=== PATIENT | male | born 1995 | race Caucasian/White ===

== ENCOUNTER 2018-08-14 17:41 | Inpatient (IN) | payer OTHER ==
[2018-08-14 21:43] VITALS: BMI 28.2
--- NOTE | 2018-08-14 23:09 | HP ---
COWS - Scale Resting Pulse: 0= CA 80 or Below Sweatin=Flushed/Facial Moisture Restless Observation: 1= Difficult to Sit Still Pupil Size: 1= Pupils >than Normal Bone or Joint Aches: 2= Severe Diffuse Aches Runny Nose/ Eye Tearin= Runny Nose/Eyes GI Upset > 30mins: 2= Nausea/Diarrhea Tremor Observation: 2= Slight Tremor Visible Yawning Observation: 1= 1-2x During Session Anxiety or Irritability: 1=Feels Anxious/Irritable Goose Flesh Skin: 0=Smooth Skin COWS Score: 14 CIWA Score Nausea/Vomitin Muscle Tremors: 3 Anxiety: 2 Agitation: 3 Paroxysmal Sweats: 2 Orientation: 0-Oriented Tacttile Disturbances: 2-Mild Itch/Numbness/Burn Auditory Disturbances: 2-Mild Harshness/Frighten Visual Disturbances: 1-Very Mild Sensitivity Headache: 1-Very Mild CIWA-Ar Total Score: 18 - Admission Criteria [facility]AS[facility] Guidelines: Admission for Medically Managed Detox: Requires at least one of the followin. CIWA greater than 12 2. Seizures within the past 24 hours 3. Delirium tremens within the past 24 hours 4. Hallucinations within the past 24 hours 5. Acute intervention needed for co occurring medical disorder 6. Acute intervention needed for co occurring psychiatric disorder 7. Severe withdrawal that cannot be handled at a lower level of care (continued vomiting, continued diarrhea, abnormal vital signs) requiring intravenous medication and/or fluids 8. Admission ROS [facility] - HPI Chief Complaint: DEPENDENT ON HEROIN, ETOH, COCAINE, MARIJUANA AND XANAX ON 20 MGS. MMTP - LAST DOSE THIS AM Allergies/Adverse Reactions: Allergies Allergy/AdvReac Type Severity Reaction Status Date / Time No Known Allergies Allergy Verified 08/14/18 21:27 History of Present Illness: THE PT. IS REQUESTING ADMISSION TO THE DETOX UNIT AND CAME FOR MEDICAL CLEARANCE AND H AND PE Exam Limitations: No Limitations - Ebola screening Have you traveled outside of the country in the last 21 days: No (N) Have you had contact with anyone from an Ebola affected area: No Have you been sick,other than usual withdrawal symptoms: No Do you have a fever: No - Review of Systems Constitutional: See HPI, Malaise, Weakness EENT: reports: See HPI Respiratory: reports: See HPI Cardiac: reports: See HPI GI: reports: See HPI, Diarrhea, Nausea, Vomiting, Abdominal cramping : reports: See HPI Musculoskeletal: reports: See HPI, Muscle Pain, Muscle Weakness Integumentary: reports: See HPI Neuro: reports: See HPI, Headache, Weakness Endocrine: reports: See HPI Hematology: reports: See HPI Psychiatric: reports: Judgement Intact, Orientated x3, Anxious, Depressed Patient History - Patient Medical History Hx Asthma: No Hx Chronic Obstructive Pulmonary Disease (COPD): No Hx Cardiac Disorders: No Hx Hypertension: No Hx Seizures: No Hx Diabetes: No Hx Gastrointestinal Disorders: No Hx Genitourinary Disorders: No Hx Sexually Transmitted Disorders: No Hx Renal Disease (ESRD): No Hx Human Immunodeficiency Virus (HIV): No Hx Hepatitis C: No Hx Depression: Yes (ANXIETY) Hx Suicide Attempt: No Hx Schizophrenia: No - Patient Surgical History Past Surgical History: No Hx Neurologic Surgery: No Hx Cataract Extraction: No Hx Cardiac Surgery: No Hx Lung Surgery: No Hx Breast Surgery: No Hx Breast Biopsy: No Hx Abdominal Surgery: No Hx Appendectomy: No Hx Cholecystectomy: No Hx Genitourinary Surgery: No Hx Section: No Hx Orthopedic Surgery: No Anesthesia Reaction: No - PPD History Previous Implant?: No Documented Results: Negative w/o proof - Smoking Cessation Smoking history: Current some day smoker Have you smoked in the past 12 months: Yes Aproximately how many cigarettes per day: 4 Hx Chewing Tobacco Use: No Initiated information on smoking cessation: Yes 'Breaking Loose' booklet given: 08/14/18 - Substance & Tx. History Hx Alcohol Use: Yes Hx Substance Use: Yes Substance Use Type: Alcohol, Cocaine, Heroin, Marijuana, Prescribed, Tranquilizers Hx Substance Use Treatment: Yes - Substances abused Heroin Substance route: Injection Frequency: Daily Amount used: 20 to 30 bags Age of first use: 18 Date of last use: 08/14/18 Alprazolam (Xanax) Substance route: Oral Frequency: Daily Amount used: 4 to 5 0f 2 mg Age of first use: 18 Date of last use: 08/14/18 Alcohol Substance route: Oral Frequency: 3-6 times per week Amount used: liquor 1 pint Age of first use: 14 Date of last use: 08/13/18 Marijuana/Hashish Substance route: Smoking Frequency: Daily Amount used: 1 gram Age of first use: 13 Date of last use: 08/14/18 Cocaine Substance route: Injection Frequency: 3-6 times per week Amount used: 1 to 2 grams Age of first use: 18 Date of last use: 08/13/18 Family Disease History - Family Disease History Family History: Denies Admission Physical Exam [facility] - Vital Signs Vital Signs: Vital Signs - 24 hr 08/14/18 21:24 Temperature 97.6 F Pulse Rate 73 Respiratory 20 Rate Blood Pressure 113/70 - Physical General Appearance: Yes: No Apparent Distress, Nourished, Tremorous, Sweating, Anxious HEENTM: Yes: Hearing grossly Normal, Normocephalic, Normal Voice, MIRELLA, Pharynx Normal Respiratory: Yes: Chest Non-Tender, Lungs Clear, Normal Breath Sounds, No Respiratory Distress, No Accessory Muscle Use Neck: Yes: No masses,lesions,Nodules, Supple, Trachea in good position Breast: Yes: Breast Exam Deferred, Axillae without masses Cardiology: Yes: Regular Rhythm, Regular Rate, S1, S2 Abdominal: Yes: Normal Bowel Sounds, Non Tender, Soft Back: Yes: Normal Inspection Musculoskeletal: Yes: full range of Motion, Gait Steady, Pelvis Stable, Muscle Pain, Muscle weakness Extremities: Yes: Normal Capillary Refill, Tremors Neurological: Yes: skiver blockers II-XII NML intact, Fully Oriented, Alert, Motor Strength 5/5, Normal Response, Depressed Affect Integumentary: Yes: Normal Color, Warm, Moist, Track Ahn Lymphatic: Yes: Within Normal Limits - Addiitonal Findings: SWELLING AND TENDERNESS AT IVDA SITES+ - Diagnostic (1) Heroin dependence Current Visit: Yes Status: Chronic (2) EtOH dependence Current Visit: Yes Status: Chronic Qualifiers: Substance use status: uncomplicated Qualified Code(s): F10.20 - Alcohol dependence, uncomplicated (3) Cocaine dependence Current Visit: Yes Status: Chronic (4) Cannabis dependence Current Visit: Yes Status: Chronic (5) Anxiety and depression Current Visit: Yes Status: Chronic (6) Benzodiazepine dependence Current Visit: Yes Status: Chronic (7) Nicotine dependence Current Visit: Yes Status: Chronic Qualifiers: Nicotine product type: cigarettes Substance use status: uncomplicated Qualified Code(s): F17.210 - Nicotine dependence, cigarettes, uncomplicated (8) Methadone maintenance therapy patient Current Visit: Yes Status: Chronic Cleared for Admission [facility] - Detox or Rehab [facility] Level of Care: Medically Supervised Detox Regimen/Protocol: Valium Breathalyzer - Breathalyzer Breathalyzer: 0 Urine Drug Screen - Test Device Lot number: [id number] Expiration date: 08/06/19 - Control Is test valid?: Yes - Results Drug screen NEGATIVE: No Urine drug screen results: THC-Marijuana, PEPE-Cocaine, MOP-Opiates, MTD- Methadone, BZO-Benzodiazepines Inpatient Rehab Admission - Rehab Decision to Admit Inpatient rehab admission?: No
[2018-08-14] MEDS ORDERED: METHOCARBAMOL 500 MG TABLET PO PRN (23:18)
[2018-08-14] MEDS ORDERED: MAGNESIUM HYDROX 2400MG/30ML ORAL SUSPENSION 30 ML CUP PO PRN (23:18)
[2018-08-14] MEDS ORDERED: diazePAM 5 MG TABLET PO ONE (23:18)
[2018-08-14] MEDS ORDERED: ACETAMINOPHEN 325 MG TABLET (FP) PO PRN ×2 (23:18)
[2018-08-14] MEDS ORDERED: MAGNESIUM CITRATE 300 ML BOTTLE PO PRN (23:18)
[2018-08-14] MEDS ORDERED: BISMUTH SUBSALICYLATE 524 MG/30 ML UD PO PRN (23:18)
[2018-08-14] MEDS ORDERED: MENTHOL/PHENOL 1 EACH UD MM PRN (23:18)
[2018-08-14] MEDS ORDERED: IBUPROFEN 400 MG TABLET (FP) PO PRN (23:18)
[2018-08-14] MEDS ORDERED: hydrOXYzine PAMOATE 25 MG CAPSULE (FP) PO PRN (23:18)
[2018-08-14] MEDS ORDERED: MAG HYDROX/AL HYDROX/SIMETH 30 ML UNIT-DOSE CUP PO PRN (23:18)
[2018-08-15] MEDS: diazePAM 5 MG TABLET PO PRN ×2 (01:01→17:41)
[2018-08-15] MEDS: diazePAM 5 MG TABLET PO SCH ×4 (01:31→22:12)
--- NOTE | 2018-08-15 09:24 | PN ---
S CIWA - CIWA Score Nausea/Vomitin-Mild Nausea/No Vomiting Muscle Tremors: 4-Moderate,w/Arms Extend Anxiety: 2 Agitation: 3 Paroxysmal Sweats: 1-Minimal Palms Moist Orientation: 1-Uncertain about Date Tacttile Disturbances: 0-None Auditory Disturbances: 0-None Visual Disturbances: 0-None Headache: 1-Very Mild CIWA-Ar Total Score: 13 [facility] Progress Note (SOAP) Subjective: patient requesting detox from his daily routine methadone of 30mg last dose 12/25 estimated discharge date 08/17/18 of alcohol and benzo patient preferring return to methadone program continue methadone luis regimen safely Objective: 08/15/18 09:55 Vital Signs Temperature 96.9 F L 08/15/18 09:09 Pulse Rate 78 08/15/18 09:09 Respiratory Rate 18 08/15/18 09:09 Blood Pressure 113/68 08/15/18 09:09 O2 Sat by Pulse Oximetry (%) 08/15/18 09:55 lab pending Assessment: 08/15/18 09:56 alcohol and benzo withdrawal sx Plan: continue detox continue methadone 30 mg
[2018-08-15] MEDS: NICOTINE 14 MG/24 HOURS TOPICAL PATCH TD SCH (10:18)
[2018-08-15] MEDS: PRENATAL VITAMINS W/ FOLIC ACID TABLET (FP) PO SCH (10:18)
[2018-08-15] MEDS: METHADONE HCL 10 MG TABLET PO SCH (10:18)
[2018-08-15 10:39] LABS: HEMATOCRIT 42.5 % (35.4-49); HEMOGLOBIN 14.4 GM/dL (11.7-16.9); MCH 30.6 pg (25.7-33.7); MCHC 33.8 g/dl (32.0-35.9); MEAN CELL VOLUME 90.6 fl (80-96); MEAN PLT VOLUME 10.3 fl (7.5-11.1); PLATELET COUNT 180 K/MM3 (134-434); WHITE BLOOD COUNT 9.3 K/mm3 (4.0-10.0)
[2018-08-15 10:41] LABS: ALBUMIN 3.8 g/dl (3.4-5.0); ALK PHOS 59 U/L (45-117); ANION GAP 6 MMOL/L (8-16); BILIRUBIN,TOTAL 0.7 mg/dL (0.2-1); BLOOD UREA NITROGEN 12 mg/dL (7-18); CALCIUM 8.9 mg/dL (8.5-10.1); CHLORIDE 100 mmol/L (98-107); CO2 33 mmol/L (21-32); GLUCOSE,RANDOM 100 mg/dL (74-106); POTASSIUM 4.2 mmol/L (3.5-5.1); SGOT/AST 17 U/L (15-37); SGPT/ALT 18 U/L (13-61); SODIUM 139 mmol/L (136-145); TOT PROT 7.4 g/dl (6.4-8.2)
[2018-08-15] MEDS ORDERED: hydrOXYzine HCL 25 MG TABLET (FP) PO PRN (18:50)
[2018-08-15] MEDS: THIAMINE HCL 100 MG TABLET (FP) PO SCH (22:12)
[2018-08-15] MEDS: MELATONIN 5 MG TABLETS PO PRN (22:12)
[2018-08-16] MEDS: diazePAM 5 MG TABLET PO PRN ×3 (00:41→17:15)
[2018-08-16] MEDS: METHADONE HCL 10 MG TABLET PO SCH (05:33)
[2018-08-16] MEDS: diazePAM 5 MG TABLET PO SCH ×2 (10:14→22:32)
[2018-08-16] MEDS: PRENATAL VITAMINS W/ FOLIC ACID TABLET (FP) PO SCH (10:14)
[2018-08-16] MEDS: NICOTINE 14 MG/24 HOURS TOPICAL PATCH TD SCH (10:14)
--- NOTE | 2018-08-16 11:30 | PN ---
[facility] CIWA - CIWA Score Nausea/Vomitin-Mild Nausea/No Vomiting Muscle Tremors: 2 Anxiety: 3 Agitation: 2 Paroxysmal Sweats: 1-Minimal Palms Moist Orientation: 0-Oriented Tacttile Disturbances: 0-None Auditory Disturbances: 0-None Visual Disturbances: 0-None Headache: 0-None Present CIWA-Ar Total Score: 9 S Progress Note (SOAP) Subjective: patient wants to return to methadone program continue luis off methadone Objective: 08/16/18 11:29 Vital Signs Temperature 96.6 F L 08/16/18 09:07 Pulse Rate 106 H 08/16/18 09:07 Respiratory Rate 20 08/16/18 09:07 Blood Pressure 109/62 08/16/18 09:07 O2 Sat by Pulse Oximetry (%) Laboratory Last Values WBC 9.3 K/mm3 (4.0-10.0) 08/15/18 07:00 RBC 4.70 M/mm3 (4.00-5.60) 08/15/18 07:00 Hgb 14.4 GM/dL (11.7-16.9) 08/15/18 07:00 Hct 42.5 % (35.4-49) 08/15/18 07:00 MCV 90.6 fl (80-96) 08/15/18 07:00 MCH 30.6 pg (25.7-33.7) 08/15/18 07:00 MCHC 33.8 g/dl (32.0-35.9) 08/15/18 07:00 RDW 14.0 % (11.9-15.9) 08/15/18 07:00 Plt Count 180 K/MM3 (134-434) 08/15/18 07:00 MPV 10.3 fl (7.5-11.1) 08/15/18 07:00 Sodium 139 mmol/L (136-145) 08/15/18 07:00 Potassium 4.2 mmol/L (3.5-5.1) 08/15/18 07:00 Chloride 100 mmol/L (98-107) 08/15/18 07:00 Carbon Dioxide 33 mmol/L (21-32) H 08/15/18 07:00 Anion Gap 6 MMOL/L (8-16) L 08/15/18 07:00 BUN 12 mg/dL (7-18) 08/15/18 07:00 Creatinine 1.0 mg/dL (0.55-1.3) 08/15/18 07:00 Creat Clearance w eGFR 91.05 (>60) 08/15/18 07:00 Random Glucose 100 mg/dL (74-106) 08/15/18 07:00 Calcium 8.9 mg/dL (8.5-10.1) 08/15/18 07:00 Total Bilirubin 0.7 mg/dL (0.2-1) 08/15/18 07:00 AST 17 U/L (15-37) 08/15/18 07:00 ALT 18 U/L (13-61) 08/15/18 07:00 Alkaline Phosphatase 59 U/L (45-117) 08/15/18 07:00 Total Protein 7.4 g/dl (6.4-8.2) 08/15/18 07:00 Albumin 3.8 g/dl (3.4-5.0) 08/15/18 07:00 RPR Titer Nonreactive (NONREACTIVE) 08/15/18 07:00 lab noted Assessment: 08/16/18 11:29 alcohol and benzo withdrawal sx Plan: continue detox
[2018-08-16] MEDS: MELATONIN 5 MG TABLETS PO PRN (22:32)
[2018-08-16] MEDS: THIAMINE HCL 100 MG TABLET (FP) PO SCH (22:32)
[2018-08-17] MEDS: METHADONE HCL 10 MG TABLET PO SCH (05:06)
[2018-08-17] MEDS ORDERED: diazePAM 5 MG TABLET PO SCH (06:00)
[2018-08-17 06:34] VITALS: BP 100/55; PULSE 49; TEMP 96.4
--- NOTE | 2018-08-17 16:35 | DS ---
[facility] Detox Discharge Summary Admission Date: 08/14/18 Discharge Date: 08/17/18 - History Present History: Alcohol Dependence, Sedative Dependence Additional Comments: 23 years old male admitted on 08/14/18 for alcohol and banzo withdrawal stabilization completed detox regimen [facility] patient is alert no acute distress shower and ate 80% breakfast denies suicidal ideation patient wants to return to his sister's house today and attend aftercare at [place] Pertinent Past History: encourage the patient return to methadone program if the patient preferring continue luis off methadone - Physical Exam Results Vital Signs: Vital Signs Temperature 96.4 F L 08/17/18 06:34 Pulse Rate 49 L 08/17/18 06:34 Respiratory Rate 18 08/17/18 06:34 Blood Pressure 100/55 L 08/17/18 06:34 O2 Sat by Pulse Oximetry (%) Pertinent Admission Physical Exam Findings: alcohol and benzo withdrawal sx Laboratory Last Values WBC 9.3 K/mm3 (4.0-10.0) 08/15/18 07:00 RBC 4.70 M/mm3 (4.00-5.60) 08/15/18 07:00 Hgb 14.4 GM/dL (11.7-16.9) 08/15/18 07:00 Hct 42.5 % (35.4-49) 08/15/18 07:00 MCV 90.6 fl (80-96) 08/15/18 07:00 MCH 30.6 pg (25.7-33.7) 08/15/18 07:00 MCHC 33.8 g/dl (32.0-35.9) 08/15/18 07:00 RDW 14.0 % (11.9-15.9) 08/15/18 07:00 Plt Count 180 K/MM3 (134-434) 08/15/18 07:00 MPV 10.3 fl (7.5-11.1) 08/15/18 07:00 Sodium 139 mmol/L (136-145) 08/15/18 07:00 Potassium 4.2 mmol/L (3.5-5.1) 08/15/18 07:00 Chloride 100 mmol/L (98-107) 08/15/18 07:00 Carbon Dioxide 33 mmol/L (21-32) H 08/15/18 07:00 Anion Gap 6 MMOL/L (8-16) L 08/15/18 07:00 BUN 12 mg/dL (7-18) 08/15/18 07:00 Creatinine 1.0 mg/dL (0.55-1.3) 08/15/18 07:00 Creat Clearance w eGFR 91.05 (>60) 08/15/18 07:00 Random Glucose 100 mg/dL (74-106) 08/15/18 07:00 Calcium 8.9 mg/dL (8.5-10.1) 08/15/18 07:00 Total Bilirubin 0.7 mg/dL (0.2-1) 08/15/18 07:00 AST 17 U/L (15-37) 08/15/18 07:00 ALT 18 U/L (13-61) 08/15/18 07:00 Alkaline Phosphatase 59 U/L (45-117) 08/15/18 07:00 Total Protein 7.4 g/dl (6.4-8.2) 08/15/18 07:00 Albumin 3.8 g/dl (3.4-5.0) 08/15/18 07:00 RPR Titer Nonreactive (NONREACTIVE) 08/15/18 07:00 lab noted - Treatment Hospital Course: Detox Protocol Followed, Detoxed Safely, Responded well, Discharged Condition Good, Rehab Referral Accepted Patient has Accepted a Rehab Referral to: [facility] - Medication Discharge Medications: Ambulatory Orders Methadone [Dolophine -] 20 mg PO DAILY 08/14/18 - Diagnosis (1) Benzodiazepine dependence Status: Acute (2) EtOH dependence Status: Acute Qualifiers: Substance use status: uncomplicated Qualified Code(s): F10.20 - Alcohol dependence, uncomplicated (3) Methadone maintenance therapy patient Status: Chronic (4) Nicotine dependence Status: Acute Qualifiers: Nicotine product type: cigarettes Substance use status: in withdrawal Qualified Code(s): F17.213 - Nicotine dependence, cigarettes, with withdrawal - AMA Did Patient Leave Against Medical Advice: No
== END 2018-08-17 09:20 | disposition home or self-care (01) | DRG 773 ==
LOC: YASAS 17:41 → Y3N 23:50
PROVIDERS: ADMIT Surgery; ATTEND Surgery
PROC: HZ2ZZZZ Detoxification Services for Substance Abuse Treatment (ICD-10-PCS; principal; 2018-08-14)
DX: F13.230 Sedative, hypnotic or anxiolytic dependence with withdrawal, uncomplicated (principal); F11.20 Opioid dependence, uncomplicated; F10.20 Alcohol dependence, uncomplicated; F14.20 Cocaine dependence, uncomplicated; F12.20 Cannabis dependence, uncomplicated; F17.213 Nicotine dependence, cigarettes, with withdrawal; F32.9 Major depressive disorder, single episode, unspecified; F41.9 Anxiety disorder, unspecified
CPT/HCPCS: 36415; 80053; 85027; 86593